=== PATIENT | male | born 1950 | race African-American/Black ===

== ENCOUNTER 2017-02-27 16:25 | Emergency (ER) | payer MEDICARE, OTHER ==
[2017-02-27 16:29] VITALS: BP 138/79; PULSE 80; RESP 14; TEMP 97.7; O2SAT 99
--- NOTE | 2017-02-27 20:14 | PD ---
HPI Chief Complaint: Oral / Dental Pain or Problem Time Seen by Provider: 20:08 Travel History International Travel<30 days: No Contact w/Intl Traveler<30days: No Traveled to known affect area: No History of Present Illness HPI 66-year-old male presents to the emergency Department with complaint of right lower dentalgia since Monday. His dentist is Dr. Be in [place]. He had an infection to the same area 3 weeks ago and was treated with amoxicillin and the infection subsided. Developed pain to the same area 3 days ago. He was told to come to the emergency department to get antibiotics. He denies fever, vomiting. Been taking ibuprofen for symptom management. Denies facial edema, swelling. Denies difficulty swallowing, unusual drooling, lump in throat. Symptoms are mild in severity. No known aggravating or relieving factors. History of hypertension. Has no other medical complaints. No other modifying factors or associated signs and symptoms. PFSH Social History Tobacco Use: No Allergies-Medications (Allergen,Severity, Reaction): Coded Allergies: No Known Allergies (Unverified , 02/27/17) Reported Meds & Prescriptions Reported Meds & Active Scripts Active Peridex Liq (Chlorhexidine Gluconate (Mouth) Liq) 0.12% Soln 15 Ml SWISH-SPIT BID 10 Days Deltasone (Prednisone) 20 Mg Tab 40 Mg PO DAILY 4 Days start 02/28/2017 Amoxicillin 500 Mg Cap 500 Mg PO BID 10 Days Review of Systems Except as stated in HPI: all other systems reviewed are Neg Physical Exam Narrative GENERAL: Well-nourished, well-developed black male patient, in no acute distress ; afebrile, nontoxic-appearing SKIN: Warm and dry. HEAD: Atraumatic. Normocephalic. No facial edema, erythema; with tenderness on palpation to right mandibular area. No lymphadenopathy. EYES: Pupils equal and round. No scleral icterus. No injection or drainage. ENT: Mucosa pink and moist. No erythema or exudates. No uvular edema. No uvular , palatal, or tonsillar deviation. Airway patent. EARS: Bilateral pinnae and external canals appear within normal limits. Bilateral tympanic membranes without erythema, dullness or perforation. MOUTH: Mucous membranes moist, no lesions, tongue and gums appear normal. Partially edentulous. Right lower gingiva is without erythema, edema, drainage. No obvious abscess noted. NECK: Trachea midline. No lymphadenopathy. CARDIOVASCULAR: Regular rate. RESPIRATORY: No accessory muscle use. GASTROINTESTINAL: Flat. MUSCULOSKELETAL: No obvious deformities. No clubbing. No cyanosis. No edema. NEUROLOGICAL: Awake and alert. Oriented 3. No obvious cranial nerve deficits. Motor grossly within normal limits. Normal speech. PSYCHIATRIC: Appropriate mood and affect; insight and judgment normal. Data Data Last Documented VS Vital Signs Date Time Temp Pulse Resp B/P (MAP) Pulse Ox O2 Delivery O2 Flow Rate FiO2 02/27/17 16:29 97.7 80 14 138/79 (98) 99 Orders Orders Amoxicillin (Trimox) (02/27/17 20:15) Prednisone (Deltasone) (02/27/17 20:30) Ed Discharge Order (02/27/17 20:18) [facility] Medical Decision Making Medical Screen Exam Complete: Yes Emergency Medical Condition: Yes Medical Record Reviewed: Yes Differential Diagnosis Dentalgia, dental abscess, infected dental caries Narrative Course 66-year-old male with dentalgia to the right lower jaw. He had an infection there 3 weeks ago and was treated with amoxicillin and it subsided. Pain started to the area again 3 days ago. He has a referral to oral surgeon for biopsy of the area. He went there today but they were closed. He was told by his dentist to come to the ER for antibiotics. He has no facial edema or erythema. No obvious abscess noted. Patient is afebrile and nontoxic- appearing. Denies fever, vomiting. Amoxicillin and Deltasone administered in the ER. Amoxicillin, Deltasone, Peridex mouth rinse prescribed for home. Instructed patient to follow up with primary care provider. Patient verbalizes understanding and agreement with treatment plan. Patient is medically cleared and stable for discharge. Discussed reasons to return to the emergency department. Patient agrees with treatment plan. The patients vital signs are stable and the patient is stable for outpatient follow-up and treatment. Patient discharged home, stable and in no acute distress. Diagnosis Primary Impression: Dentalgia Referrals: Dentist Primary Care Physician Patient Instructions: Dental Abscess (ED), General Instructions, Toothache (ED) Additional Instructions: Complete full course of antibiotics Ibuprofen or Tylenol as directed and as needed to reduce pain and inflammation Use Peridex as directed for oral hygiene Warm or cool compresses to the affected area Follow-up with dentist Follow-up with primary care provider Return to emergency department immediately with worsening of symptoms Med/Other Pt SpecificInfo: Prescription(s) given Scripts Chlorhexidine Gluconate (Mouth) Liq (Peridex Liq) 0.12% Soln 15 ML SWISH-SPIT BID for 10 Days, #300 ML 0 Refills Prov: Kassy Sierra 02/27/17 Prednisone (Deltasone) 20 Mg Tab 40 MG PO DAILY for 4 Days, #8 TAB 0 Refills start 02/28/2017 Prov: Kassy Sierra 02/27/17 Amoxicillin (Amoxicillin) 500 Mg Cap 500 MG PO BID for Infection for 10 Days, #20 CAP 0 Refills Prov: Kassy Sierra 02/27/17 Disposition: 01 DISCHARGE HOME Condition: Stable Kassy Sierra Feb 27, 2017 20:14
[2017-02-27] MEDS ORDERED: AMOXICILLIN (TRIHYDRATE) 500 MG CAP PO ONE (20:15)
[2017-02-27] MEDS ORDERED: PRED-503 PO (20:16)
[2017-02-27] MEDS ORDERED: AMOX500C PO (20:16)
[2017-02-27] MEDS ORDERED: PERI0.126 SWISH-SPIT (20:18)
[2017-02-27] MEDS ORDERED: predniSONE 20 MG TAB PO ONE (20:30)
== END 2017-02-27 20:53 | disposition home or self-care (01) ==
LOC: NEPK 16:25
DX: K08.89 Other specified disorders of teeth and supporting structures (principal); I10 Essential (primary) hypertension
CPT/HCPCS: 99284; J7512